=== PATIENT | female | born 1945 | race Caucasian/White ===

== ENCOUNTER 2022-12-19 01:04 | Inpatient (IN) | payer MEDICARE ==
[2022-12-19 01:58] LABS: ALT (SGPT) 8 U/L (8-55); AST (SGOT) 15 U/L (5-34); Albumin 4.1 g/dL (3.4-4.8); Alkaline Phosphatase 59 U/L (40-110); Anion Gap 16 mmol/L (10-20); BUN (Urea Nitrogen) 16 mg/dL (9.8-20.1); Bilirubin, Total 0.9 mg/dL (0.2-1.2); Calc. Creatinine Clearance 0 mL/min (70-130); Calcium 10.2 mg/dL (7.8-10.44); Carbon Dioxide 22 mmol/L (23-31); Chloride 98 mmol/L (98-107); Estimated GFR 68; Globulin 3.1 g/dL (2.4-3.5); Glucose 131 mg/dL (83-110); INR-International Normal Ratio 1.1; Lipase 21 U/L (8-78); Magnesium 1.1 mg/dL (1.6-2.6); PTT 35.2 sec (22.0-33.0); Potassium 3.7 mmol/L (3.5-5.1); Protein, Total 7.2 g/dL (5.8-8.1); Prothrombin Time 11.5 sec (9.5-12.1); Sodium 132 mmol/L (136-145)
[2022-12-19 02:04] LABS: Troponin I Less than 0.010 ng/mL (< 0.028)
[2022-12-19 02:06] LABS: Hematocrit 38.6 % (34.9-44.5); Hemoglobin 13.1 g/dL (12.0-15.5); MDiff Complete? YES; Mean Corpuscular HGB CONC 33.9 g/dL (32.0-36.0); Mean Corpuscular Hemoglobin 30.8 pg (27.0-33.0); Mean Corpuscular Volume 90.6 fl (81.6-98.3); Mean Platelet Volume 11.1 fl (7.4-10.4); Platelet Count 190 10x3/uL (150-450); RBC Distribution Width 12.8 % (11.5-14.5); Red Blood Cell (RBC) Count 4.26 10x6/uL (3.90-5.03); White Blood Cell (WBC) Count 11.6 10x3/uL (3.5-10.5)
[2022-12-19 02:54] LABS: SARS-CoV-2 NAA Rapid Test Not Detected (NotDetected)
[2022-12-19] MEDS ORDERED: Magnesium 2 GM/50 ML BAG (IN WATER) ONE (02:55)
[2022-12-19] MEDS ORDERED: Benzonatate 100 MG CAP ONE (03:20)
[2022-12-19 04:30] LABS: Band 13 % (5-11); Lymphocytes 12 % (21-51); Monocytes 8 % (0-10); Neutrophil 67 % (42-75)
[2022-12-19 04:32] LABS: Microcytosis SLIGHT = 6-15 cells (100X) (0-5/hpf)
[2022-12-19 04:33] LABS: Platelet Adequacy Comment Appears Adequate
[2022-12-19] MEDS ORDERED: Ipratropium/Albuterol 3 ML NEB ONE (05:00)
[2022-12-19] MEDS ORDERED: cefTRIAXone (ROCEPHIN) 1 GM VIAL ONE (05:08)
[2022-12-19] MEDS ORDERED: Azithromycin 500 MG VIAL ONE (05:09)
[2022-12-19] MEDS ORDERED: Acetaminophen 325 MG TAB PO PRN (06:06)
[2022-12-19] MEDS ORDERED: Guaifenesin DM 100-10/5 ML UDCUP PO PRN (06:06)
[2022-12-19] MEDS ORDERED: Milk Of Magnesia 30 ML UDCUP PO PRN (06:06)
[2022-12-19] MEDS: Arformoterol 15 MCG/2 ML NEB NEB SCH ×2 (08:24→19:24)
[2022-12-19] MEDS: Ipratropium/Albuterol 3 ML NEB NEB SCH ×4 (08:24→19:22)
[2022-12-19] MEDS: methylPREDNISolone Sod Succ 40 MG VIAL IVP SCH ×2 (08:46→20:44)
[2022-12-19] MEDS: Nicotine 21 MG PATCH TD SCH (08:46)
[2022-12-19] MEDS: Aspirin 81 mg Enteric Coated Tablet PO SCH (08:46)
[2022-12-19] MEDS ORDERED: Losartan 50 MG TAB PO SCH (09:00)
[2022-12-19] MEDS ORDERED: traMADol HCl 50 MG TAB PO SCH (09:00)
[2022-12-19] MEDS ORDERED: Aspirin 325 MG TAB PO SCH (09:00)
[2022-12-19 09:02] VITALS: BMI 22.3
[2022-12-19] MEDS ORDERED: Iopamidol 370 76% 100 ML VIAL ONE (09:33)
[2022-12-19] MEDS ORDERED: Electrolyte Replacement Protocol 1 EACH FS SCH (10:15)
[2022-12-19] MEDS ORDERED: Electrolyte Replacement Protocol FS PRN (10:15)
[2022-12-19] MEDS: Magnesium 2 GM/50 ML(in water) 2 GM in Premix 1 BAG IVPB SCH ×2 (10:35→12:25)
[2022-12-19 10:37] LABS: Actual Bicarbonate (HCO3a) 24.2 mEq/L (22-28); Base Excess (BEa) 1.9 mEq/L (-2.0 to +3.0); CO2 Tension 30.8 mmHg (35.0-45.0); Calcium, Ionized (arterial) 1.18 mmol/L (1.12-1.30); Carboxyhemoglobin (COHb) 0.3 gm% (0.0-3.0); Hematocrit-ABG 36 % (36.0-47.0); Hemoglobin (Hb) 12.2 g/dL (12.0-16.0); O2 Tension (PaO2), arterial 47.1 mmHg (> 70.0); Potassium - ABG Lab 3.37 mmol/L (3.70-5.30); Puncture Site RBA; pH, Arterial 7.513 (7.35-7.45)
[2022-12-19] MEDS: Triamterene/Hydrochlorothiazide 37.5 mg/25 mg Tablet PO SCH (12:24)
[2022-12-19 15:20] LABS: Legionella Urinary Ag Negative (Negative); Strep pneumo Urine Ag NEGATIVE (NEGATIVE)
[2022-12-19 15:30] LABS: Magnesium 2.8 mg/dL (1.6-2.6)
[2022-12-19] MEDS ORDERED: FLU VACC QS2023(65UP)/MF59C/PF 60 MCG/0.5 ML SYRINGE IM ONE (18:00)
[2022-12-19] MEDS: Metoprolol Tartrate 25 MG TAB PO SCH (20:45)
[2022-12-20 03:26] LABS: Hematocrit 34.9 % (34.9-44.5); Hemoglobin 11.7 g/dL (12.0-15.5); MDiff Complete? YES; Mean Corpuscular HGB CONC 33.5 g/dL (32.0-36.0); Mean Corpuscular Hemoglobin 30.5 pg (27.0-33.0); Mean Corpuscular Volume 91.1 fl (81.6-98.3); Mean Platelet Volume 11.1 fl (7.4-10.4); RBC Distribution Width 12.8 % (11.5-14.5); Red Blood Cell (RBC) Count 3.83 10x6/uL (3.90-5.03)
[2022-12-20 03:47] LABS: Anion Gap 14 mmol/L (10-20); BUN (Urea Nitrogen) 17 mg/dL (9.8-20.1); Calc. Creatinine Clearance 56 mL/min (70-130); Carbon Dioxide 24 mmol/L (23-31); Chloride 98 mmol/L (98-107); Estimated GFR 76; Glucose 156 mg/dL (83-110); Magnesium 2.4 mg/dL (1.6-2.6); Potassium 3.8 mmol/L (3.5-5.1); Sodium 132 mmol/L (136-145)
[2022-12-20 04:17] LABS: Platelet Count 155 10x3/uL (130-400)
[2022-12-20 05:43] LABS: Band 7 % (5-11); Lymphocytes 9 % (21-51); Monocytes 7 % (0-10); Neutrophil 77 % (42-75)
[2022-12-20] MEDS: Azithromycin 500 MG in Sodium Chloride 0.9% 250 ML 250 ML IVPB SCH (05:44)
[2022-12-20 05:51] LABS: Microcytosis SLIGHT = 6-15 cells (100X) (0-5/hpf); Platelet Adequacy Comment Appears Adequate
[2022-12-20] MEDS: cefTRIAXone\\ROCEPHIN 1 GM in Sodium Chloride 0.9% 100 ML IVPB SCH (06:49)
[2022-12-20] MEDS: Ipratropium/Albuterol 3 ML NEB NEB SCH ×2 (07:30→11:45)
[2022-12-20] MEDS: Arformoterol 15 MCG/2 ML NEB NEB SCH ×2 (07:30→19:38)
[2022-12-20] MEDS: methylPREDNISolone Sod Succ 40 MG VIAL IVP SCH ×2 (08:17→20:31)
[2022-12-20] MEDS: Metoprolol Tartrate 25 MG TAB PO SCH ×2 (08:17→20:32)
[2022-12-20] MEDS: Losartan 50 MG TAB PO SCH (08:17)
[2022-12-20] MEDS: Aspirin 81 mg Enteric Coated Tablet PO SCH (08:17)
[2022-12-20] MEDS: Nicotine 21 MG PATCH TD SCH (08:17)
[2022-12-20] MEDS: Triamterene/Hydrochlorothiazide 37.5 mg/25 mg Tablet PO SCH (08:18)
[2022-12-20] MEDS ORDERED: Ipratropium Bromide 2.5 ml Neb NEB SCH (15:00)
[2022-12-20] MEDS: Ipratropium Bromide 2.5 ml Neb NEB SCH ×2 (19:36→22:35)
[2022-12-20] MEDS: guaiFENesin ER 600 MG TAB PO SCH (20:31)
[2022-12-20] MEDS: Zolpidem Tartrate 5 MG TAB PO PRN (21:28)
[2022-12-20] MEDS: traMADol HCl 50 MG TAB PO SCH (21:28)
[2022-12-21] MEDS: Ipratropium Bromide 2.5 ml Neb NEB SCH ×6 (02:41→23:20)
[2022-12-21] MEDS: Azithromycin 500 MG in Sodium Chloride 0.9% 250 ML 250 ML IVPB SCH (04:59)
[2022-12-21] MEDS: cefTRIAXone\\ROCEPHIN 1 GM in Sodium Chloride 0.9% 100 ML IVPB SCH (06:15)
[2022-12-21] MEDS: Arformoterol 15 MCG/2 ML NEB NEB SCH (07:55)
[2022-12-21] MEDS: Aspirin 81 mg Enteric Coated Tablet PO SCH (08:31)
[2022-12-21] MEDS: guaiFENesin ER 600 MG TAB PO SCH ×2 (08:31→21:13)
[2022-12-21] MEDS: Losartan 50 MG TAB PO SCH (08:31)
[2022-12-21] MEDS: Triamterene/Hydrochlorothiazide 37.5 mg/25 mg Tablet PO SCH (08:31)
[2022-12-21] MEDS: Metoprolol Tartrate 25 MG TAB PO SCH ×2 (08:31→21:14)
[2022-12-21] MEDS: Nicotine 21 MG PATCH TD SCH (08:31)
[2022-12-21] MEDS: traMADol HCl 50 MG TAB PO SCH ×4 (08:32→22:07)
[2022-12-21] MEDS: methylPREDNISolone Sod Succ 40 MG VIAL IVP SCH ×2 (08:33→21:12)
[2022-12-21] MEDS ORDERED: Clopidogrel Bisulfate 75 MG TAB PO SCH (10:00)
[2022-12-21] MEDS: Mometasone/Formoterol 60 PUFF AER INH SCH (19:50)
[2022-12-21] MEDS: Zolpidem Tartrate 5 MG TAB PO PRN (21:13)
[2022-12-22] MEDS: Ipratropium Bromide 2.5 ml Neb NEB SCH ×6 (03:30→22:54)
[2022-12-22] MEDS: Azithromycin 500 MG in Sodium Chloride 0.9% 250 ML 250 ML IVPB SCH (04:37)
[2022-12-22] MEDS: cefTRIAXone\\ROCEPHIN 1 GM in Sodium Chloride 0.9% 100 ML IVPB SCH (05:42)
[2022-12-22] MEDS: Mometasone/Formoterol 60 PUFF AER INH SCH ×2 (07:10→18:55)
[2022-12-22] MEDS: traMADol HCl 50 MG TAB PO SCH ×4 (09:12→21:26)
[2022-12-22] MEDS: Aspirin 81 mg Enteric Coated Tablet PO SCH (09:12)
[2022-12-22] MEDS: Nicotine 21 MG PATCH TD SCH (09:12)
[2022-12-22] MEDS: Metoprolol Tartrate 25 MG TAB PO SCH ×2 (09:13→21:27)
[2022-12-22] MEDS: Losartan 50 MG TAB PO SCH (09:13)
[2022-12-22] MEDS: Clopidogrel Bisulfate 75 MG TAB PO SCH (09:13)
[2022-12-22] MEDS: guaiFENesin ER 600 MG TAB PO SCH ×2 (09:13→21:38)
[2022-12-22] MEDS: Triamterene/Hydrochlorothiazide 37.5 mg/25 mg Tablet PO SCH (09:14)
[2022-12-22] MEDS: methylPREDNISolone Sod Succ 40 MG VIAL IVP SCH ×2 (09:14→21:25)
[2022-12-22] MEDS ORDERED: cefTRIAXone\\ROCEPHIN 1 GM in Sodium Chloride 0.9% 100 ML IVPB SCH (21:00)
[2022-12-22] MEDS: Zolpidem Tartrate 5 MG TAB PO PRN (22:15)
[2022-12-23] MEDS: Ipratropium Bromide 2.5 ml Neb NEB SCH ×3 (02:58→11:15)
[2022-12-23] MEDS: Azithromycin 500 MG in Sodium Chloride 0.9% 250 ML 250 ML IVPB SCH (04:55)
[2022-12-23 05:43] LABS: Hematocrit 36.2 % (34.9-44.5); Hemoglobin 12.2 g/dL (12.0-15.5); Mean Corpuscular HGB CONC 33.7 g/dL (32.0-36.0); Mean Corpuscular Hemoglobin 30.5 pg (27.0-33.0); Mean Corpuscular Volume 90.5 fl (81.6-98.3); Mean Platelet Volume 10.4 fl (7.4-10.4); Platelet Count 222 10x3/uL (150-450); RBC Distribution Width 12.4 % (11.5-14.5); White Blood Cell (WBC) Count 10.5 10x3/uL (3.5-10.5)
[2022-12-23 05:54] LABS: Anion Gap 15 mmol/L (10-20); BUN (Urea Nitrogen) 34 mg/dL (9.8-20.1); Calc. Creatinine Clearance 50 mL/min (70-130); Calcium 9.8 mg/dL (7.8-10.44); Carbon Dioxide 25 mmol/L (23-31); Chloride 98 mmol/L (98-107); Estimated GFR 66; Glucose 125 mg/dL (83-110); Potassium 4.8 mmol/L (3.5-5.1); Sodium 133 mmol/L (136-145)
[2022-12-23] MEDS: Mometasone/Formoterol 60 PUFF AER INH SCH (07:05)
[2022-12-23] MEDS: methylPREDNISolone Sod Succ 40 MG VIAL IVP SCH (08:15)
[2022-12-23] MEDS: Nicotine 21 MG PATCH TD SCH (08:16)
[2022-12-23] MEDS: guaiFENesin ER 600 MG TAB PO SCH (08:17)
[2022-12-23] MEDS: Metoprolol Tartrate 25 MG TAB PO SCH (08:17)
[2022-12-23] MEDS: traMADol HCl 50 MG TAB PO SCH (08:17)
[2022-12-23] MEDS: Losartan 50 MG TAB PO SCH (08:18)
[2022-12-23] MEDS: Aspirin 81 mg Enteric Coated Tablet PO SCH (08:18)
[2022-12-23] MEDS: Clopidogrel Bisulfate 75 MG TAB PO SCH (08:19)
[2022-12-23] MEDS: Triamterene/Hydrochlorothiazide 37.5 mg/25 mg Tablet PO SCH (08:19)
[2022-12-23 13:13] VITALS: BP 115/62; TEMP 98.1
== END 2022-12-23 16:54 | disposition home or self-care (01) | DRG 189 ==
LOC: CSHERS 01:04 → CSHERHOLD 05:18 → CSHTELE 06:57
PROVIDERS: ADMIT Family Medicine; ATTEND Internal Medicine
PROC: 4A033R1 Measurement of Arterial Saturation, Peripheral, Percutaneous Approach (ICD-10-PCS; principal; 2022-12-19)
DX: J96.01 Acute respiratory failure with hypoxia (principal); J44.1 Chronic obstructive pulmonary disease with (acute) exacerbation; F17.210 Nicotine dependence, cigarettes, uncomplicated; I10 Essential (primary) hypertension; E87.5 Hyperkalemia; I25.10 Atherosclerotic heart disease of native coronary artery without angina pectoris; I71.40 Abdominal aortic aneurysm, without rupture, unspecified; R91.8 Other nonspecific abnormal finding of lung field; E83.42 Hypomagnesemia; Z11.52 Encounter for screening for COVID-19; Z88.8 Allergy status to other drugs, medicaments and biological substances; Z79.82 Long term (current) use of aspirin; Z79.899 Other long term (current) drug therapy; Z71.6 Tobacco abuse counseling; Z90.710 Acquired absence of both cervix and uterus; Z80.1 Family history of malignant neoplasm of trachea, bronchus and lung; Z80.3 Family history of malignant neoplasm of breast
CPT/HCPCS: 36415; 36600; 71045; 71275; 80048; 80053; 82805; 83605; 83690; 83735; 83880; 84443; 84484; 85025; 85027; 85610; 85730; 87040; 87070; 87205; 87449; 87633; 87899; 93005; 93010; 94640; 94664; 94667; 94760; J0456; J0696; J2920; J3475; J3490; J7050; J7620; Q9967